=== PATIENT | female | born 1970 | race Caucasian/White ===

== ENCOUNTER 2024-01-02 12:20 | Emergency (ER) | payer OTHER, SELFPAY ==
[2024-01-02 12:36] VITALS: BP 159/99; PULSE 80; RESP 16; TEMP 36.6; O2SAT 99; BMI 31.6
--- NOTE | 2024-01-02 12:45 | PC.NURSE ---
pt has a superficial abrasion to nose and slight swelling to right eye / forehead.
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
== END 2024-01-02 13:35 | disposition home or self-care (01) ==
PROVIDERS: Emergency Provider Emergency Medicine; PCP Nurse Practitioner Family
DX: S09.8XXA Other specified injuries of head, initial encounter (principal); R51.9 Headache, unspecified; V47.6XXA Car passenger injured in collision with fixed or stationary object in traffic accident, initial encounter
CPT/HCPCS: 99283